=== PATIENT | male | born 1990 | race Caucasian/White ===

== ENCOUNTER 2017-03-18 18:03 | Emergency (ER) | payer SELFPAY ==
[~2017-03-18] VITALS: Ht 175.3 cm; Wt 95.7 kg
[2017-03-18 18:48] VITALS: Ht 175.3 cm; Wt 95.7 kg
[2017-03-18 21:16] VITALS: BP 137/92
== END 2017-03-18 21:16 | disposition home or self-care (01) ==
LOC: ED 18:03
DX: S63.601A Unspecified sprain of right thumb, initial encounter (principal); S16.1XXA Strain of muscle, fascia and tendon at neck level, initial encounter; M54.5 Low back pain; V43.53XA Car driver injured in collision with pick-up truck in traffic accident, initial encounter; Y93.89 Activity, other specified; Y99.8 Other external cause status; Y92.411 Interstate highway as the place of occurrence of the external cause
CPT/HCPCS: J1885